=== PATIENT | male | born 1945 | race Caucasian/White ===

== ENCOUNTER 2016-04-08 14:56 | Emergency (ER) | payer OTHER ==
[2016-04-08] MEDS ORDERED: KETOROLAC TROMETHAMINE 30 MG/ML 1 ML VIAL ONE (15:23)
[2016-04-08 15:35] LABS: ABSOLUTE NEUTROPHIL COUNT 7.5 K/mm3 (1.8-7.7); BASO % 0.3 % (0.2-1.0); EOS % 0.2 % (0.9-2.9); HEMATOCRIT 39.6 % (32.0-52.0); HEMOGLOBIN 13.5 gm/l (14.0-18.0); IMM NEUT% 0.3 % (0-1); LYMPH # 1.1 (1.0-4.8); LYMPH % 11.2 % (15-45); MEAN CELL VOLUME 93.6 fl (80.0-94.0); MEAN CORPUSCULAR HEMOGLOBIN 31.9 pg (27.0-31.0); MEAN CORPUSCULAR HGB CONC 34.1 g/dl (33.0-37.0); MEAN PLATELET VOLUME 10.5 fl (7.4-10.4); MONO # 0.8 (0.0-0.8); PLATELET COUNT 206 K/mm3 (130-400); RED CELL DISTRIBUTION WIDTH 13.4 % (11.5-14.5)
[2016-04-08 15:42] LABS: ALB/GLOB RATIO 1.2 (>1.0); ALBUMIN 3.8 gm/dL (3.5-5.7); CALCIUM 7.6 mg/dL (8.6-10.3)
[2016-04-08 15:46] LABS: C-REACTIVE PROTEIN 5.1 mg/dl (<1.0)
--- NOTE | 2016-04-08 16:00 | RAD ---
Exam: Two-view chest COMPARISON: None INDICATION: Weakness and chills for 3 days. Findings: PA and lateral views of the chest were obtained. Postsurgical changes of median sternotomy are appreciated. Cardiac silhouette is within normal limits. Lungs are normally inflated. There is no pulmonary edema, focal airspace disease or pleural effusion. A few old rib fractures are noted on the right. Prominent anterior osteophyte formation is noted at T12-L1. IMPRESSION: No radiographic evidence of pneumonia. Heart surgery.
== END 2016-04-08 16:41 | disposition home or self-care (01) ==
LOC: ED 14:56
DX: J11.1 Influenza due to unidentified influenza virus with other respiratory manifestations (principal); R53.1 Weakness; R05 Cough; E89.0 Postprocedural hypothyroidism
CPT/HCPCS: 86141; 85025; 80053; 84484; 71020; 87804; 99284; 96374; 99283; J1885